=== PATIENT | female | born 1945 | race Caucasian/White ===

== ENCOUNTER 2017-05-01 06:50 | Day surgery (SDC) | payer MEDICARE, OTHER ==
[~2017-05-01] VITALS: Ht 165.1 cm; Wt 95.6 kg
[~2017-05-01 06:50] MED LIST: ALPR0.5T3 PO; CARB25TA PO; CHOL1CAP6 PO; CLOP75 PO; COMMODE 3:1; DOCU1CAP39 PO; ECOT81TA2 PO; ESCI10TA PO; FLOV220A INH; GABA600T PO; HYDR-3580 PO; LEVO50TA4 PO; MELA5TAB13 PO; METO25 PO; PRIM50TA PO; PROT40TA PO; ROPI3TAB PO; TEMA15 PO; TRAZ150T75 PO; VITA100020 SL; ZOCO40TA PO
[2017-05-01] MEDS ORDERED: IOHEXOL 350 MG/ML 100 ML BTL (for Cath Lab) OTHER ONE (06:51)
[2017-05-01 07:10] VITALS: BP 156/95; PULSE 84; RESP 16; O2SAT 96
[2017-05-01] MEDS ORDERED: SODIUM CHLOR 0.9% 1000 ML INJ 1,000 ML IV SCH (07:15)
[2017-05-01 07:24] LABS: AUTOMATED NEUTROPHIL # 2.9 TH/MM3 (1.8-7.7); BASOPHIL % 0.6 % (0.0-2.0); EOSINOPHIL # 0.1 TH/MM3 (0-0.4); EOSINOPHIL % 1.8 % (0.0-4.0); HEMATOCRIT 39.3 % (35.0-46.0); HEMOGLOBIN 13.7 GM/DL (11.6-15.3); LYMPH % 33.2 % (9.0-44.0); LYMPHOCYTE # 1.7 TH/MM3 (1.0-4.8); MEAN CELL VOLUME 88.9 FL (80.0-100.0); MEAN CORPUSCULAR HEMOGLOBIN 31.1 PG (27.0-34.0); MEAN PLATELET VOLUME 7.6 FL (7.0-11.0); MONO % 7.7 % (0.0-8.0); MONOCYTE # 0.4 TH/MM3 (0-0.9); NEUT % 56.7 % (16.0-70.0); PLATELET COUNT 193 TH/MM3 (150-450); RED BLOOD COUNT 4.42 MIL/MM3 (4.00-5.30); WHITE BLOOD COUNT 5.1 TH/MM3 (4.0-11.0)
[2017-05-01 07:32] LABS: PROTHROMBIN TIME - PATIENT 10.7 SEC (9.8-11.6)
[2017-05-01] MEDS ORDERED: ESCI20TA PO (07:33)
[2017-05-01] MEDS ORDERED: ARIP1TAB13 PO (07:33)
[2017-05-01] MEDS ORDERED: LEVO50TA4 PO (07:33)
[2017-05-01] MEDS ORDERED: CLOP75TA PO (07:33)
[2017-05-01] MEDS ORDERED: GABA800T PO (07:33)
[2017-05-01] MEDS ORDERED: TRAM50TA PO (07:33)
[2017-05-01] MEDS ORDERED: TRAZ100T10 PO (07:33)
[2017-05-01] MEDS ORDERED: [UNRECOGNIZED DRUG - CODE] PO (07:33)
[2017-05-01] MEDS ORDERED: POTA10CA PO (07:33)
[2017-05-01] MEDS ORDERED: VITA2000 PO (07:33)
[2017-05-01] MEDS ORDERED: ASPI81TA23 PO (07:33)
[2017-05-01] MEDS ORDERED: VITA10002 PO (07:33)
[2017-05-01] MEDS ORDERED: CARB25TA9 PO (07:33)
[2017-05-01] MEDS ORDERED: FURO40TA PO (07:33)
[2017-05-01] MEDS ORDERED: LORA-650 PO (07:33)
[2017-05-01] MEDS ORDERED: DOCU100C15 PO (07:33)
[2017-05-01] MEDS ORDERED: TOPI50TA7 PO (07:33)
[2017-05-01] MEDS ORDERED: PRAV40TA2 PO (07:33)
[2017-05-01] MEDS ORDERED: POLY99.0 EACH EYE (07:33)
[2017-05-01] MEDS ORDERED: VERA1TAB17 PO (07:33)
[2017-05-01] MEDS ORDERED: MAPA325T PO (07:33)
[2017-05-01] MEDS ORDERED: ALPR0.5T3 PO (07:33)
[2017-05-01] MEDS ORDERED: ROPI3TAB PO (07:33)
[2017-05-01] MEDS ORDERED: PRIM50TA5 PO (07:33)
[2017-05-01 07:35] LABS: BICARBONATE 27.6 MEQ/L (21.0-32.0); CALCIUM 9.2 MG/DL (8.5-10.1); CREATININE 0.85 MG/DL (0.50-1.00)
[2017-05-01 07:40] LABS: INTERNATIONAL NORMALIZED RATIO 1.1 RATIO
[2017-05-01] MEDS ORDERED: HEPARIN-NS/PF FLUSH BAG 2,000 ML IV FLUSH ONE (08:25)
[2017-05-01] MEDS ORDERED: MIDAZOLAM HCL 2 MG/2 ML VIAL ONE (08:36)
[2017-05-01] MEDS ORDERED: VERAPAMIL HCL 5 MG/2 ML VIAL ONE (08:36)
[2017-05-01] MEDS ORDERED: HEPARIN SODIUM - IV 10,000 UNITS/10 ML VIAL ONE (08:36)
[2017-05-01] MEDS ORDERED: NITROGLYCERIN INJ 5 ML ONE (08:36)
--- NOTE | 2017-05-01 09:21 | CATHPROC ---
[employer] HIS Report Study Information Study Number Admission Scheduled Start Study Start [id number] May 01 2017 6:50AM 05/01/2017 May 01 2017 8:22AM [place] [facility] Cardiac Catheterization Admit Source Facility Department Other [facility] Physician and Clinical Staff Initial Chidi Tariq Pulp Machine Operator Jose J RN, Mike Recorder Lorraine Schulte ,RT(R) Scrub Katina Loredo,RT(R) Procedures Performed Procedure Location (Site) Vessel Name Coronary Angiograms LCA Left Coronary Coronary Angiograms RCA Right Coronary L Heart Cath LV Gram-hand inj. LV LV Ventricle Equipment Time Patient Accounts Clerk Description Size Mfg Part Number Used/Scraped TRANSDUCER, TRUWAVE [id number] 08:27 SepSensor * Used W/STOCKCOCK *[id number] *[id number] 08:27 MALLINCKRODT SYRINGE, ANGIOMAT 150ML 150ML *[id number] Used 2SUB SundaySky CONCEPT DRAPE, RADIAL FEMORAL FULL 08:27 * [id number] *[id number] Used DEVELOPMENT BODY [id number] 08:27 Exterity PACK, CCL CUSTOM * Used *[id number] 08:27 Exterity SUPPORT, ARTERIAL ADULT 13586 *[id number] Used [id number] 08:27 Hot Dot PACER PEN, SKIN DUAL W/ RULER * Used *[id number] 09:05 MEDTRONIC JR 5.0 DXTERITY CATHETER fr 5 [id number] Used BAND, RADIAL COMPRESSION TR [id number] 09:10 [email or web address] 29CM Used LARGE 29 *[id number] SHEATH, FR6 RADIAL PRELUDE 08:27 [email or web address] FR 6 [id number] Used EASE 11CM [id number] 08:27 [email or web address] WIRE, EXCHANGE 260CM 3MMJ 260CM Used *[id number] 08:27 NAMIC MANIFOLD, 4 PORT * Used *[id number] 08:27 NYCOMED OMNIPAQUE, 350 MG, 150ML 150ML [id number] Used [id number] 08:27 NEGRON MEDICAL BLANKET,WARM AIR CCL * Used *[id number] CATHETER, FR5 OPTITORQUE [id number] 08:50 TERUMO MEDICAL FR 5 Used RADIAL TIG 4.0 *[id number] Equipment Model, Serial, Lot Number and Expiration Data Description Model Number Serial Number Lot Number Expiration Date JR 5.0 DXTERITY CATHETER [id number] 09-22-2019 History: Current Medications Medication Dosage/Unit Route Frequency Last Date/Time Taken Statins (any) ASA TRAMADOL PLAVIX History: Allergies Allergy Reaction Sulfa (Sulfonamide Antibiotics) WEAK LEGS iohexol PASSED OUT diatrizoate meglumine PASSED OUT gadoteridol PASSED OUT gadodiamide PASSED OUT iodixanol PASSED OUT gadobenic acid PASSED OUT History: Risk Factors Family History of Hypertension Dyslipidemia Previous CO Previous Heart Failure Premature CAD Yes Yes No No No Prior Valve Prior PCI Prior PCIDate Prior CABG Surgery No Yes 03/24/2015 No Cerebrovascular Peripheral Artery Chronic Lung On Dialysis Diabetes Disease Disease Disease No Yes No Yes No History: Symptoms/Diagnosis Selection Items Chest pain SOB History: Stress Tests Stress or Imaging Studies Performed Yes Standard Exercise Stress Test No Stress Echo No Stress Test SPECT Stress Test SPECT Result Stress Test SPECT Ischemia Risk/Extent Yes Positive Low Stress Test CMR No Cardiac CTA Coronary Calcium Score No No History: Other Disease Selection Items HTN Labs Hgb (g/dl) Hct (%) WBC (l/cumm) Platelets (thousands) 11.60-17.00 35.00-51.00 4.00-11.00 150.00-450.00 13.7 39.3 5.1 193 Glucose (mg/dl) BUN (mg/dl) Creatinine (mg/dl) BUN:Creatinine (1:x) 74.00-106.00 7.00-18.00 0.50-1.30 10.00-20.00 110 13 0.8 16.3 Na (meq/l) K (meq/l) 136.00-145.00 3.50-5.10 140 4.3 INR (PTT:PT) 0.90-1.10 1.1 Medication Medication Total Dose (Bolus/Oral) Medication Total Dosage/Unit 1% XYLOCAINE 5 mL RADIAL COCKTAIL 5 mL (Bolus) VERSED 2 mg Medications (Bolus/Oral) Medication Time Given Dosage/Unit Administered By Reason 1% XYLOCAINE 05/01/2017 8:58:55 AM 5 mL Chidi Da Silva 5 mL 1% XYLOCAINE given in lab by Chidi Da Silva in Right Radial via Subcutaneous. Ordered by Eber Da Silva. VERSED 05/01/2017 8:59:14 AM 2 mg Mike Lux RN 2 mg VERSED given in lab by Mike Lux RN in Left Forearm via Peripheral IV. Ordered by Long Da Silva Ntg 200mcg Verapamil 2.5mg Heparin RADIAL COCKTAIL 05/01/2017 9:00:30 AM 5 mL (Bolus) Chidi Da Silva 2500U 5 mL (Bolus) RADIAL COCKTAIL given in lab by Chidi Da Silva in Right Radial via Radial. Using [Solution Name]. Ordered by Chidi Da Silva. Reason: Ntg 200mcg Verapamil 2.5mg Heparin 2500U. Medication (Drip) Medication Time Given Dosage/Unit Concentration/Unit Diluent (ml) Solution IV Solutions 05/01/2017 8:22:48 AM 50 mL (IV) NaCl .9 Patient arrived on IV Solutions in Left Forearm via Peripheral IV. Pump/Drip Flow using NaCl .9. Initial Case Assessment Cardiovascular HR NIBP Chest Pain 77 137/85 0 Edema Present Skin color Skin None Normal Warm Dry Circulatory - Right Pulses Dorsalis Pedis Femoral Radial 2 2 2 Scale (0,1,2,3,4,d) Circulatory - Left Pulses Dorsalis Pedis Femoral Radial 2 2 Scale (0,1,2,3,4,d) Neurological State Oriented to time-place- Alert Moves all extremities person Respiration - General Respiration Rate SpO2 (%) O2 (lpm) (B/min) 15 96 2 Final Case Assessment Cardiovascular HR NIBP 72 109/59 Edema Present Skin color Skin None Normal Warm Dry Circulatory - Right Pulses Dorsalis Pedis Femoral Radial 2 2 2 Scale (0,1,2,3,4,d) Circulatory - Left Pulses Dorsalis Pedis Femoral Radial 2 2 Scale (0,1,2,3,4,d) Neurological State Oriented to time-place- Alert Moves all extremities person Respiration - General Respiration Rate SpO2 (%) O2 (lpm) (B/min) 16 96 3 Chronological Log Time Study Chronological Log 8:19:21 Patient arrived via Bed. 8:22:27 Patient Name, D.O.B, / Armband Verified By R.N. 8:22:28 Consent signed by the physician and the patient and verified by the [facility] staff. 8:22:28 Pre-op and post- op instructions given; patient acknowledges understanding of instructions. 8:22:29 Verbal Stimulation=2 Physical Stimulation=2 Airway=2 Respiration=2 TOTAL=8. (0=absent, 1=li mited, 2=present) 8:22:31 Presedation assessment performed by [facility] RN. 8:22:33 Allens test performed on the right radial and ulnar artery. 8:22:41 Patient has been NPO for More than 6Hrs. 8:22:41 Skin Breakdown- none per patient 8:22:42 Patient Warmer Placed on the Table. 8:22:43 Wai Prominences Protected 8:22:47 A # 20 IV was noted in the Forearm (left). Grade = 0 8:22:48 Patient arrived on IV Solutions in Left Forearm via Peripheral IV. Pump/Drip Flow using NaC l .9. 8:22:48 History and physical on the chart or being dictated. Assessment: Initial Case, HR=77 BPM, ANVI=480/85 mmhg, Chest Pain=0, Edema=None, Color=Normal, Skin = Warm, Dry Right Pulses: Eliecer Ped=2, Femoral=2, Radial=2 8:22:49 Left Pulses: Eliecer Ped=2, Femoral=2 Neurological: State=Alert, Ox3, BEDOYA Respiration: Resp=15 B/min, SpO2=96 %, O2=2 lpm Vitals capture started with the following parameters, Patient=Adult, Interval=5 min, Initial Pre jkdrg=610 mmHg, 8:28:25 Deflation Rate=5 mmHg, Cuff placed on Left Arm 8:29:02 HR=76 bpm, IZGE=811/85 mmhg, SpO2=91.0 %, Resp=21 B/min, Pain=0, Juancho=8, Wynn=2 8:33:46 Right Radial and groin(s) prepped with 2% chlorhexidine, and draped after a 3 min. waiting t nguyen. 8:33:59 HR=76 bpm, KNYF=239/84 mmhg, SpO2=94.0 %, Resp=28 B/min, Pain=0, Juancho=8, Wynn=2 8:36:21 Reference ECG taken 8:38:56 HR=73 bpm, SQEE=360/80 mmhg, SpO2=96.0 %, Resp=17 B/min, Pain=0, Juancho=8, Wynn=2 8:43:19 Pressure channel 1 zeroed. 8:43:57 HR=74 bpm, VASY=164/81 mmhg, SpO2=95.0 %, Resp=15 B/min, Pain=0, Juancho=8, Wynn=2 8:45:50 MD paged 8:48:58 HR=74 bpm, MLAX=186/81 mmhg, SpO2=95.0 %, Resp=16 B/min, Pain=0, Juancho=8, Wynn=2 MD responded 8:49:56 8:53:59 HR=72 bpm, SVBO=789/81 mmhg, SpO2=96.0 %, Resp=38 B/min, Pain=0, Juancho=8, Wynn=2 8:54:14 MD arrived. Time Out. Correct patient, correct procedure, correct physician, power injector not loaded with contrast with surgical 8:57:42 team present. Time Out Concurred by MD and individual staff in procedure. 8:58:09 Case Start 8:58:55 5 mL 1% XYLOCAINE given in lab by Chidi Da Silva in Right Radial via Subcutaneous. Ordered by Chidi Da Silva. 8:58:58 HR=72 bpm, TQZA=322/79 mmhg, Resp=19 B/min, Pain=0, Juancho=8, Wynn=2 8:59:14 2 mg VERSED given in lab by Mike Lux RN in Left Forearm via Peripheral IV. Ordered by Chidi Burgos. 8:59:41 Access site was Right Radial Artery. A SHEATH, FR6 RADIAL PRELUDE EASE 11CM FR 6 was advanced into the Radial (right) using the Percu taneous 9:00:10 technique. 5 mL (Bolus) RADIAL COCKTAIL given in lab by Chidi Da Silva in Right Radial via Radial. Using [Yanna ution Name]. Ordered 9:00:30 by Chidi Da Silva. Reason: Ntg 200mcg Verapamil 2.5mg Heparin 2500U. A CATHETER, FR5 OPTITORQUE RADIAL TIG 4.0 FR 5 was advanced over a wire. OMNIPAQUE, 350 MG, 150M L 150ML 9:01:30 was used for injections. 9:02:02 The LCA was injected and visualized at various angles. OMNIPAQUE, 350 MG, 150ML 150ML used. 9:04:05 HR=76 bpm, EWLR=864/54 mmhg, SpO2=94.0 %, Resp=18 B/min, Pain=0, Juancho=8, Wynn=2 Recorded Pressure: Ao, HR=76, Condition=Condition 1 9:04:08 (Aorta) Ao 89/58/71 9:04:44 Catheter was removed A JR 5.0 DXTERITY CATHETER fr 5 was advanced over a wire. OMNIPAQUE, 350 MG, 150ML 150ML was use d for 9:05:04 injections. 9:06:30 The RCA was injected and visualized at various angles. OMNIPAQUE, 350 MG, 150ML 150ML used. 9:07:13 Catheter was removed A MPA-2 INFINITI CATHETER FR 5 was advanced over a wire. OMNIPAQUE, 350 MG, 150ML 150ML was used for 9:07:16 injections. Recorded Pressure: LV, HU=155, Condition=Condition 1 9:08:47 (Left Ventricle) LV 105/14/20 9:08:58 HR=67 bpm, RTZC=582/59 mmhg, SpO2=95.0 %, Resp=16 B/min, Pain=0, Juancho=8, Wynn=2 9:09:05 The LV was manually injected with 5 cc's and visualized. OMNIPAQUE, 350 MG, 150ML 150ML used . Recorded Pressure: LV, Ao, HR=76, Condition=Condition 1 9:09:09 (Left Ventricle) LV 103/6/18, (Aorta) Ao 113/65/86 9:09:42 Catheter was removed 9:09:43 Case End Assessment: Final Case, HR=72 BPM, CYIW=111/59 mmhg, Edema=None, Color=Normal, Skin = Warm, Dr y Right Pulses: Eliecer Ped=2, Femoral=2, Radial=2 9:09:51 Left Pulses: Eliecer Ped=2, Femoral=2 Neurological: State=Alert, Ox3, BEDOYA Respiration: Resp=16 B/min, SpO2=96 %, O2=3 lpm 9:09:54 Catheter(s) removed without difficulty Radial Compression Device Used. 15 mLs of air placed in BAND, RADIAL COMPRESSION TR LARGE 29 2 9CM. Affected 9:09:58 hand 98 % O2 saturation. 9:10:10 No case complications noted. 9:10:11 Cine recording checked. 9:10:19 Bedside Report will be given. 9:: Contrast Scanned 9:10:29 A Left Heart Cath was performed. 9:13:57 HR=70 bpm, SKHP=603/70 mmhg, SpO2=96.0 %, Resp=19 B/min, Pain=0, Juancho=8, Wynn=2 9:15:50 Vitals capture stopped. 9:19:00 Patient moved to stretcher End Study - Contrast Media Used In Study Contrast Total Opened (mL) Total Used (mL) Total Wasted (mL) Omnipaque 60 60 0 End Study - Maximum Contrast Load Max Contrast Load (mL) 597.4 End Study - Radiation Exposure Fluoro Time (minutes) 2.9 End Study - Sheaths Sheaths Pulled By Sheath Hold Time (min) Katina Loredo End Study - Patient Disposition Complications Transferred To Interventional Outcome No Telemetry Bed No attempt made
[2017-05-01] MEDS ORDERED: SODIUM CHLORIDE 0.9% FLUSH 10 ML FLUSH IV FLUSH PRN (09:30)
[2017-05-01] MEDS ORDERED: MISC INFORMATION XX ONE (09:30)
--- NOTE | 2017-05-01 10:01 | MA ---
cc: JOSELO DELGADO M.D. DATE 05/01/2017 PROCEDURE Left heart catheterization, selective coronary angiography, left ventriculography. PROCEDURE NOTES The patient was brought to the cardiac catheterization laboratory in a fasting state after having signed informed consent. The right radial region was prepped and draped as per policy and anesthetized with 1% lidocaine. Arterial access was obtained via the right radial artery and a 6-Grenadian sheath placed. Coronary arteriography was performed using a [place] catheter to engage the left main and a [place] right 5.0 to engage the right coronary. Left ventriculography was done using a multipurpose catheter. There were no apparent immediate complications. A radial artery compression band was applied to her right wrist at the end of the case to achieve good hemostasis. HEMODYNAMIC RESULTS Left ventricle 103 with an end-diastolic pressure of less than 10. Aorta 113/55 with a mean of 86. There was no significant transvalvular aortic gradient on pullback of the pigtail catheter. CORONARY ARTERIOGRAPHY The left main is normal. The left anterior descending demonstrates widely patent stents in its proximal and midportions. There is 10% stenosis in the proximal LAD, 10% stenosis of the ostium of a fairly large diagonal. There are minimal luminal irregularities of the mid to distal LAD. The left circumflex is a medium-sized vessel giving rise to small obtuse marginals. A very small first obtuse marginal may have 40-50% ostial stenosis. The rest of the left circumflex is free of disease. There is a small ramus intermedius which is free of disease. The right coronary artery is a very large dominant vessel which is angiographically normal. LEFT VENTRICULOGRAPHY Contrast injection of the left ventricle reveals no segmental wall motion abnormalities. Ejection fraction is estimated at 70%. CONCLUSIONS 1. Overall minimal coronary artery disease. 2. Widely patent proximal and mid-LAD stents. 3. Normal left ventricular function with estimated ejection fraction of 70%. MD HERI Preston/CHUYITA /9:14 AM /9:54 AM [facility]
--- NOTE | 2017-05-01 19:16 | EKG ---
Date Performed: 05/01/2017 Time Performed: 07:20:46 PTAGE: 72 years EKG: Sinus rhythm . Left axis deviation QRS changes V3/V4 may be due to LVH but cannot rule out anterior infarct Left v entricular hypertrophy Abnormal ECG Since the prior tracing, there has been no significant change PREVIOUS TRACING : 03/26/2015 21.49 DOCTOR: Bill Warren Interpretating Date/Time 05/01/2017 19:14:40
[2017-05-01] MEDS ORDERED: SODIUM CHLORIDE 0.9% FLUSH 10 ML FLUSH IV FLUSH SCH (21:00)
== END 2017-05-01 13:20 ==
LOC: HSDC 06:50 → HDIC 06:51 → HSDC 13:20
PROVIDERS: ATTEND Internal Medicine Cardiovascular Disease
DX: I25.10 Atherosclerotic heart disease of native coronary artery without angina pectoris (principal); I10 Essential (primary) hypertension; I63.9 Cerebral infarction, unspecified; K31.84 Gastroparesis; K20.9 Esophagitis, unspecified; E78.5 Hyperlipidemia, unspecified; G20 Parkinson's disease; G43.909 Migraine, unspecified, not intractable, without status migrainosus; M19.90 Unspecified osteoarthritis, unspecified site
CPT/HCPCS: 80048; 85025; 85610; 85730; 93005; 93458; 99152; C1769; C1893; J1644; J2250; Q9967